=== PATIENT | male | born 1980 | race Caucasian/White ===

== ENCOUNTER 2020-11-13 13:17 | Emergency (ER) | payer BC ==
[2020-11-13] MEDS ORDERED: Propofol 200 MG/20 ML SDV IV ONE (13:18)
[2020-11-13] MEDS ORDERED: HYDROmorphone 1 MG/ML Syringe IVPUSH ONE (13:23)
[2020-11-13] MEDS ORDERED: Ondansetron 4 MG/2 ML SDV IVPUSH ONE (13:23)
--- NOTE | 2020-11-13 13:33 | EDM.PDOC ---
ED [facility] GENERAL MEDICAL PROBLEM - General Stated Complaint: [id number] DISLOCATED KNEE Time Seen by Provider: 11/13/20 13:32 Source of Information: Reports: Patient History Limitations: Reports: No Limitations - History of Present Illness INITIAL COMMENTS - FREE TEXT/NARRATIVE: ED via POV. Severe pain to right knee after stepping off edge of deck [employer]. Limited weight bearing. No other injury. Obvious patellar deformity. Right Knee Pain Score (Numeric/FACES): 10 - Related Data Allergies Allergy/AdvReac Type Severity Reaction Status Date / Time No Known Allergies Allergy Verified 11/13/20 13:44 Home Meds: Home Meds Omeprazole 20 mg PO ASDIRECTED 11/13/20 [History] Review of Systems - Review of Systems Review Of Systems: Comprehensive ROS is negative, except as noted in HPI. ED EXAM, GENERAL - Physical Exam Exam: See Below Exam Limited By: No Limitations General Appearance: Alert, Moderate Distress Eye Exam: Bilateral Eye: EOMI Ears: Normal External Exam Nose: Normal Inspection Throat/Mouth: Normal Inspection Respiratory/Chest: No Respiratory Distress, Lungs Clear Cardiovascular: Normal Peripheral Pulses, Regular Rate, Rhythm Extremities: Limited Range of Motion, Other (deformity right patella with pward lateral deviation). No: Normal Inspection, Normal Range of Motion Neurological: Alert, Oriented, Normal Cognition Skin Exam: Warm, Dry, Intact, Normal Color ED TRAUMA EXTREMITY PROCEDURES - Joint Reduction Right Other Sedation: Conscious Sedation Pre-Procedure NV Status: Normal Post-Procedure NV Status: Normal Technique: Traction/Counter Traction Number of Attempts: 1 Post-Reduction Imaging: Acceptably Reduced Joint Reduction Complications: No Progress/Comments: Knee immobilizer folling reduction Course - Vital Signs Last Recorded V/S: Last Vital Signs Temp 96 F L 11/13/20 13:39 Pulse 72 11/13/20 13:39 Resp 18 11/13/20 13:39 BP 123/61 11/13/20 13:39 Pulse Ox 100 11/13/20 13:39 - Orders/Labs/Meds Labs: Laboratory Tests 11/13/20 11/13/20 Range/Units 13:36 13:36 WBC 7.7 (5.0-10.0) 10^3/uL RBC 5.27 (4.6-6.2) 10^6/uL Hgb 14.7 (14.0-18.0) g/dL Hct 43.6 (40.0-54.0) % MCV 82.7 (80-100) fL MCH 27.9 (27.0-34.0) pg MCHC 33.7 (33.0-35.0) g/dL Plt Count 202 (150-450) 10^3/uL Neut % (Auto) 75.8 H (42.2-75.2) % Lymph % (Auto) 15.8 L (20.5-50.1) % [place] % (Auto) 6.6 (2-8) % Eos % (Auto) 1.3 (1.0-3.0) % Baso % (Auto) 0.5 (0.0-1.0) % Sodium 139 (136-145) mmol/L Potassium 3.8 (3.5-5.1) mmol/L Chloride 102 (98-107) mmol/L Carbon Dioxide 28 (21-32) mmol/L Anion Gap 12.8 (7-13) mEq/L BUN 12 (7-18) mg/dL Creatinine 0.94 (0.70-1.30) mg/dL Est Cr Clr Drug Dosing 116.95 mL/min Estimated GFR (MDRD) > 60 BUN/Creatinine Ratio 12.8 (No establ ref range) Glucose 109 H (70-99) mg/dL Calcium 8.5 (8.5-10.1) mg/dL Total Bilirubin 0.5 (0.2-1.0) mg/dL AST 20 (15-37) U/L ALT 40 (16-63) U/L Alkaline Phosphatase 95 (46-116) U/L Total Protein 7.4 (6.4-8.2) g/dL Albumin 3.6 (3.4-5.0) g/dL Globulin 3.8 Albumin/Globulin Ratio 0.9 Meds: Medications Discontinued Medications Generic Name Dose Route Start Last Admin Trade Name Freq PRN Reason Stop Dose Admin Hydromorphone HCl 1 mg 11/13/20 13:23 11/13/20 13:58 Hydromorphone 1 Mg/Ml Syringe IVPUSH 11/13/20 13:24 1 mg ONETIME ONE Administration Ondansetron HCl 4 mg 11/13/20 13:23 11/13/20 13:58 Ondansetron 4 Mg/2 Ml Sdv IVPUSH 11/13/20 13:24 4 mg ONETIME ONE Administration Propofol 90 mg 11/13/20 13:18 Propofol 200 Mg/20 Ml Sdv IV 11/13/20 13:19 .STK-MED ONE Departure - Departure Time of Disposition: 16:04 Disposition: Home, Self-Care 01 Condition: Good Clinical Impression: Dislocation, patella closed Qualifiers: Encounter type: initial encounter Laterality: right Qualified Code(s): S83.004A - Unspecified dislocation of right patella, initial encounter - Discharge Information *PRESCRIPTION DRUG MONITORING PROGRAM REVIEWED*: No *COPY OF PRESCRIPTION DRUG MONITORING REPORT IN PATIENT MIRANDA: No Instructions: How to Use a Knee Immobilizer, [id number] Referrals: PCP,Not In Area [Primary Care Provider] - Additional Instructions: ice to knee alternate tylenol and ibuprofen every 4 hours for pain control knee immobilizer, crutches, weight bearing as tolerated follow up ortho clinic early week [phone]
[2020-11-13 14:01] LABS: ANION GAP 12.8 mEq/L (7-13); CHLORIDE,CL 102 mmol/L (98-107); SODIUM,NA 139 mmol/L (136-145)
--- NOTE | 2020-11-13 14:21 | CR ---
PROCEDURE INFORMATION: Exam: XR Right Knee Exam date and time: 11/13/2020 1:43 PM Age: 39 years old Clinical indication: Injury or trauma; Fall; Blunt trauma; Knee; Right; Injury date: 11/13/2020; Additional info: Slipped off step TECHNIQUE: Imaging protocol: XR Right knee. Views: 1 or 2 views. COMPARISON: No relevant prior studies available. FINDINGS: Bones/joints: Lateral dislocation of the patella is present. There are mild degenerative changes of the knee joint, predominantly involving the medial joint compartment. Soft tissues: Soft tissue swelling is present. IMPRESSION: 1. Lateral dislocation of the patella is present. 2. There are mild degenerative changes of the knee joint, predominantly involving the medial joint compartment. 3. Soft tissue swelling is present.
--- NOTE | 2020-11-13 15:54 | CR ---
PROCEDURE INFORMATION: Exam: XR Right Knee Exam date and time: 11/13/2020 3:32 PM Age: 39 years old Clinical indication: Other: Post reduction TECHNIQUE: Imaging protocol: XR Right knee. Views: 1 or 2 views. COMPARISON: CR Knee 1V or 2V Rt 11/13/2020 1:43 PM FINDINGS: Bones/joints: Apparent lateral subluxation of the patella is present. There is no evidence of acute fracture. Joint effusion is present. Prepatellar soft tissue swelling. Soft tissues: See "Bones/joints" finding. IMPRESSION: 1. Apparent lateral subluxation of the patella is present. [place] view of the patella is recommended in follow-up. 2. No evidence of acute fracture. 3. Joint effusion is present. 4. Prepatellar soft tissue swelling.
== END 2020-11-13 16:35 | disposition home or self-care (01) ==
LOC: DL.ED 13:17
DX: S83.004A Unspecified dislocation of right patella, initial encounter (principal); W22.09XA Striking against other stationary object, initial encounter
CPT/HCPCS: 01462; 27550; 27560; 36415; 73560; 80053; 85025; 96374; 96375; 99283; 99284; J1170; J2405; J2704